=== PATIENT | female | born 2000 | race Two or more races ===

== ENCOUNTER 2025-06-15 17:15 | Emergency (ER) | payer OTHER ==
[~2025-06-15] VITALS: Ht 157.5 cm; Wt 90.7 kg
[2025-06-15] MEDS ORDERED: DEXAMETHASONE SODIUM PHOSPHATE 4 MG/ML VIAL IM ONE (22:00)
== END 2025-06-15 22:17 | disposition home or self-care (01) ==
LOC: ER 17:15
DX: G56.01 Carpal tunnel syndrome, right upper limb (principal)